=== PATIENT | male | born 1975 | race Caucasian/White ===

== ENCOUNTER 2022-06-02 07:43 | Day surgery (SDC) | payer BC ==
[2022-05-31 11:16] VITALS: BMI 34.8
[2022-06-02] MEDS ORDERED: Oxymetazoline HCl 0.05% (30 ML BOT) ONE ×2 (08:34→09:47)
[2022-06-02] MEDS ORDERED: methylPREDNISolone Acetate 40 mg/ml Vial ONE (09:47)
[2022-06-02] MEDS ORDERED: EPINEPHrine 1 MG/ML AMP ONE (09:47)
[2022-06-02] MEDS ORDERED: Lidocaine 1% (PF) 30 ML VIAL ONE (09:47)
[2022-06-02] MEDS ORDERED: Famotidine/PF 20 mg/2ml Vial ONE (09:53)
[2022-06-02] MEDS ORDERED: Fentanyl 250 MCG/5 ML VIAL ONE (09:53)
[2022-06-02] MEDS ORDERED: Ketorolac Tromethamine 30 MG/ML VIAL ONE (10:03)
[2022-06-02] MEDS ORDERED: Dexamethasone 20 MG/5 ML VIAL ONE (10:03)
[2022-06-02] MEDS ORDERED: Ondansetron PF 4 MG/2 ML Vial ONE (10:03)
[2022-06-02] MEDS ORDERED: Metoclopramide HCl 10 MG/2 ML VIAL ONE (10:03)
[2022-06-02] MEDS ORDERED: Lidocaine 1% PF 5 ML VIAL ONE (10:03)
[2022-06-02] MEDS ORDERED: PROPOFOL 200 MG/20 ML VIAL ONE (10:03)
[2022-06-02] MEDS ORDERED: Bacitracin Zinc Ointment 30 gm TUBE ONE (10:34)
[2022-06-02] MEDS ORDERED: FENTANYL 50 MCG/ML 1 ML VIAL ONE ×2 (11:18→11:39)
[2022-06-02] MEDS ORDERED: Hydrocodone-Acetamin 15 ML UDCUP ONE (12:28)
[2022-06-02] MEDS ORDERED: Morphine 2 MG/ML VIAL ONE (12:28)
== END 2022-06-02 13:20 | disposition home or self-care (01) ==
LOC: SDC 07:43
PROVIDERS: ATTEND Otolaryngology Plastic Surgery within the Head & Neck
DX: J32.4 Chronic pansinusitis (principal); J35.01 Chronic tonsillitis; J35.3 Hypertrophy of tonsils with hypertrophy of adenoids; J34.2 Deviated nasal septum; J34.3 Hypertrophy of nasal turbinates; J34.89 Other specified disorders of nose and nasal sinuses; K13.79 Other lesions of oral mucosa; G47.30 Sleep apnea, unspecified; I10 Essential (primary) hypertension; Z79.899 Other long term (current) drug therapy
CPT/HCPCS: 88302; 88304; 93005; 93010; J0171; J1030; J1100; J1885; J2001; J2272; J2405; J2704; J2765; J3010; S0028